=== PATIENT | male | born 1960 | race African-American/Black ===

== ENCOUNTER 2017-07-14 14:42 | Outpatient (CLI) | payer OTHER ==
--- NOTE | 2017-07-14 16:14 | RAD ---
TWO VIEWS LUMBAR SPINE: History: Low back pain with pain radiating down the right leg. Comparison: 04-23-17 FINDINGS: Lumbar spine two views. There is evidence of a stable mild to moderate compression fracture at L1. St able loss of vertebral body height and retropulsion. Remaining lumbar spine vertebral body heights ar e maintained. IMPRESSION: Stable L1 compression fracture. POS: [facility]
== END 2017-07-14 14:43 | disposition home or self-care (01) ==
LOC: TBSIIMAG 14:42
PROVIDERS: ATTEND Neurological Surgery
DX: S32.010A Wedge compression fracture of first lumbar vertebra, initial encounter for closed fracture (principal); M54.9 Dorsalgia, unspecified
CPT/HCPCS: 72100

== ENCOUNTER 2017-08-10 15:10 | Outpatient (CLI) | payer OTHER ==
[2017-08-10 15:56] LABS: Estimated GFR-MDRD - POC Greater than 90
[2017-08-10] MEDS ORDERED: Gadobenate Dimeglumine 529 MG/1 ML (20ML VIAL) ONE (17:38)
--- NOTE | 2017-08-10 17:58 | MRI ---
LUMBAR SPINE MRI WITH AND WITHOUT CONTRAST 08/10/17 COMPARISON: None available. HISTORY: Closed compression fracture of L1, low back pain radiating down the left leg. TECHNIQUE: Multiplanar and multisequence MR imaging of the lumbar spine is obtained with and without contrast. FINDINGS: The sagittal STIR imaging demonstrates increased signal intensity within the central aspect of the L1 vertebral body extending anteriorly to the anterior aspect of the L1 vertebral body. This increased STIR signal also extends to the inferior and superior end plate. This is consistent with edema associ ated with a comminuted burst fracture, best delineated on the 04/07/17 exam. There is retropulsion of o sseous fragments into the central canal at the inferior end plate of the L1 vertebral body, the prior CT examination as well. There is no additional discrete area of edema within the imaged osseous stru ctures. The full extent of fracture deformities is best assessed on the 04/07/17 CT examination. Assuming five lumbar type vertebral bodies, conus medullaris terminates in the T12-L1 region. T12-L1: There is disc space narrowing. On the basis of congenitally short pedicles, there is mild sam tral canal stenosis. There is no significant neural foraminal stenosis. L1-2: The above described burst fracture of L1 vertebral body demonstrates retropulsion along the inf erior end plate of L1. At this level, there is a moderate degree of associated central canal stenosis with mass effect on nerve roots of the cauda equina. There is bilateral facet hypertrophy with mild to moderate bilateral neural foraminal stenosis, right greater than left. L2-3: Bilateral facet hypertrophy noted, left greater than right. Congenitally short pedicles lead to mild central canal stenosis. No significant neural foraminal stenosis. L3-4: Mild bilateral facet hypertrophy. Congenitally short pedicles lead to mild central canal stenos is. No significant neural foraminal stenosis. L4-5: There is edematous increased signal intensity within bilateral facet joints with prominent bila teral facet hypertrophy. There is moderate associated central canal stenosis. There is moderate/sever e bilateral neural foraminal stenosis, right greater than left. There is a T2 hyperintense peripheral ly T2 hypointense 6 mm synovial cyst extending medially from the left facet joint worsening left late ral recess stenosis at L4-5. L5-S1: Bilateral facet hypertrophy noted, right greater than left. Mild left and moderate right neura l foraminal stenosis. Mild central canal stenosis on the basis of congenitally short pedicles. The imaged retroperitoneal structures appear grossly unremarkable. The STIR imaging demonstrates mild increased signal intensity within the paraspinal muscles posterior ly to the left of midline at the lumbosacral junction and just to the right of midline at the L3 and L4 vertebral levels. The postcontrast imaging demonstrates no abnormal enhancement involving the imag ed osseous structures or intervertebral discs. There is an isolated thin enhancing structure traversi ng the region of the nerve roots of the cauda equina which suggests a central/right paracentral infla med/enhancing nerve root. This could be on the basis of arachnoiditis. The configuration of the burst fracture at L1 is similar to the CT examination performed 04/07/17, which better defines the fracture. IMPRESSION: 1. There is a burst fracture at the L1 vertebral body with retropulsion of osseous fragment and associated significant central canal stenosis. There is residual edema within the L1 vertebral body. 2. Multilevel degenerative change noted within the lumbar spine with areas of associated central canal and neural foraminal stenosis. 3. Enhancing nerve root of the cauda equina, which can be seen with arachnoiditis or nonspecific nerve root inflammation. Code T POS: [facility]
== END 2017-08-10 15:11 | disposition home or self-care (01) ==
LOC: TBSIIMAG 15:10
PROVIDERS: ATTEND Neurological Surgery
DX: S32.011D Stable burst fracture of first lumbar vertebra, subsequent encounter for fracture with routine healing (principal); M48.061 Spinal stenosis, lumbar region without neurogenic claudication; M47.896 Other spondylosis, lumbar region; M99.83 Other biomechanical lesions of lumbar region
CPT/HCPCS: 72158; A9579

== ENCOUNTER 2017-09-07 06:36 | Day surgery (SDC) | payer OTHER, SELFPAY ==
[2017-09-04 13:43] VITALS: BMI 33.0
[2017-09-07] MEDS ORDERED: Fentanyl 100 MCG/2 ML VIAL ONE ×3 (06:39→11:24)
[2017-09-07] MEDS ORDERED: CEFAZOLIN/Water 2 GM/20 ML SYRINGE ONE (07:54)
[2017-09-07] MEDS ORDERED: Midazolam HCl 2 mg/2 ml Vial ONE (07:54)
[2017-09-07] MEDS ORDERED: Famotidine/PF 20 mg/2ml Vial ONE (07:54)
[2017-09-07 08:11] LABS: Hemoglobin 13.6 g/dL (14.0-18.0); Mean Corpuscular HGB CONC 34.1 g/dL (32.0-36.0); Mean Corpuscular Volume 90.9 fl (80.0-94.0); Mean Platelet Volume 7.1 fL (7.4-10.4); Platelet Count 259 thou/uL (130-400); RBC Distribution Width 11.4 % (11.5-14.5); Red Blood Cell (RBC) Count 4.38 mill/uL (4.70-6.10); White Blood Cell (WBC) Count 5.8 thou/uL (4.8-10.8)
[2017-09-07 08:28] LABS: Anion Gap 12 mmol/L (10-20); BUN (Urea Nitrogen) 9 mg/dL (8.4-25.7); Calc. Creatinine Clearance 130 mL/min (70-130); Calcium 9.9 mg/dL (7.8-10.44); Carbon Dioxide 26 mmol/L (22-29); Chloride 105 mmol/L (98-107); Estimated GFR-MDRD Greater than 90; Glucose 104 mg/dL (70-105); Potassium 3.4 mmol/L (3.5-5.1); Sodium 140 mmol/L (136-145)
[2017-09-07] MEDS ORDERED: Promethazine HCl 25 MG/ML VIAL IM/IV PRN (10:19)
[2017-09-07] MEDS ORDERED: Ondansetron HCl/PF 4 MG/2 ML Vial IVP PRN (10:19)
--- NOTE | 2017-09-07 11:54 | OP ---
DATE OF PROCEDURE: 09/07/2017 SURGEON: Elbert Grant M.D. JACQUARD CARD CUTTER: Gary Knight PROCEDURE PERFORMED: L4-L5 laminectomy. PROCEDURE IN DETAIL: The patient was brought into the operating room, intubated. He was rolled in t he prone position on gel-filled chest rolls. An incision was made exposing L4 and L5 and our level w as confirmed by x-ray. We performed complete L5 and complete L4 laminectomies completely decompressi ng the neural elements from severe facet arthropathy and bilateral synovial cysts. The wound was the n extensively irrigated, immaculate hemostasis was secured. Vancomycin powder was applied and the wo und was then closed in anatomic layers.
[2017-09-07] MEDS ORDERED: HYDROcodone/Acetaminophen 10/325 mg Tablet ONE (12:27)
[2017-09-07] MEDS ORDERED: PHENYLEPHRINE-NS 100 MCG/ML 10 ML SYRINGE ONE (15:12)
[2017-09-07] MEDS ORDERED: Glycopyrrolate 0.2 MG/ML 5 ML SYRINGE ONE (15:12)
[2017-09-07] MEDS ORDERED: PROPOFOL 200 MG/20 ML VIAL ONE (15:12)
[2017-09-07] MEDS ORDERED: Dexamethasone 20 MG/5 ML VIAL ONE (15:12)
[2017-09-07] MEDS ORDERED: Ondansetron HCl/PF 4 MG/2 ML Vial ONE (15:12)
[2017-09-07] MEDS ORDERED: Ketorolac Tromethamine 30 MG/ML VIAL ONE (15:12)
[2017-09-07] MEDS ORDERED: Lidocaine 1% PF 5 ML VIAL ONE (15:12)
--- NOTE | 2017-09-08 06:34 | EKG ---
Test Reason : PREOP Blood Pressure : / mmHG Vent. Rate : 058 BPM Atrial Rate : 058 BPM P-R Int : 136 ms QRS Dur : 108 ms QT Int : 416 ms P-R-T Axes : 060 048 030 degrees QTc Int : 408 ms Sinus bradycardia Otherwise normal ECG When compared with ECG of 07-APR-2017 15:43, No significant change was found Confirmed by LILLY TRIMBLE ([id number]) on 09/08/2017 6:34:24 AM Referred By: PAM Confirmed By:LILLY TRIMBLE
== END 2017-09-07 13:30 | disposition home or self-care (01) ==
LOC: SDC 06:36
PROVIDERS: ATTEND Neurological Surgery
PROC: 00NY0ZZ Release Lumbar Spinal Cord, Open Approach (ICD-10-PCS; principal; 2017-09-07)
DX: M48.061 Spinal stenosis, lumbar region without neurogenic claudication (principal); M71.38 Other bursal cyst, other site; I10 Essential (primary) hypertension; M10.9 Gout, unspecified; Z79.891 Long term (current) use of opiate analgesic; Z79.899 Other long term (current) drug therapy; Z98.890 Other specified postprocedural states
CPT/HCPCS: 76001; 80048; 85027; 93005; 93010; 96374; J1100; J1885; J2001; J2250; J2405; J2704; J3010; J3370; S0028

== ENCOUNTER 2018-03-18 09:27 | Outpatient (CLI) | payer OTHER ==
--- NOTE | 2018-03-18 12:43 | MRI ---
MRI CERVICAL SPINE NONCONTRAST: 03/18/2018 HISTORY: A 57-year-old male with cervical spondylosis with myelopathy (M47.12). COMPARISON: None. FINDINGS: The cervical spinal canal is diffusely small in caliber, on a congenital basis, due to developmentall y short pedicles. This is exacerbated by mild cervical spondylosis, as described below. The cervica l spinal cord is normal in size and signal. Vertebral body heights are maintained. Alignment is nor mal. There are moderate degenerative facet changes bilaterally, at C7-T1, left greater than right. Mild disk space narrowing at C4-C5 and C5-C6. No severe disk space narrowing at any level. There ar e shallow, broad-based disk osteophytic bar complexes that mildly indent the ventral surfaces of the spinal cord at C3-C4, C4-C5, C5-C6, and C6-C7. There are uncinate process osteophytes that encroach upon the bilateral neural foramina, causing neural foraminal stenosis. C1-C2: No additional findings, as seen on sagittal images. C2-C3: Moderate central stenosis. Mild bilateral neural foraminal stenosis. C3-C4: There is either a right lateral focal disk herniation or an asymmetrically moderate to large right uncinate process osteophyte complex, causing severe right neural foraminal stenosis, impinging on the exiting right C4 nerve roots. Overall, moderate to severe central spinal canal stenosis, and severe left neural foraminal stenosis also. C4-C5: Somewhat severe central spinal canal stenosis. Severe bilateral neural foraminal stenosis. In addition to the disk osteophytic bar complex, there is a superimposed, small, focal, left paracent ral disk herniation, which additionally indents the spinal cord. C5-C6: Severe central spinal canal stenosis. Severe bilateral neural foraminal stenosis. C6-C7: Moderate to severe central spinal canal stenosis. Severe right neural foraminal stenosis. M oderate to severe left neural foraminal stenosis. C7-T1: Moderate to severe central spinal canal stenosis. Bilateral moderate to severe neural forami nal stenosis. IMPRESSION: Developmentally small caliber spinal canal, exacerbated by mild to moderate multilevel cervical spond ylosis, with multilevel moderate and severe central spinal canal stenosis and multilevel severe bilat eral neural foraminal stenosis. POS: [facility]
== END 2018-03-18 09:28 | disposition home or self-care (01) ==
LOC: MRI 09:27
PROVIDERS: ATTEND Neurological Surgery
DX: M47.12 Other spondylosis with myelopathy, cervical region (principal); M48.02 Spinal stenosis, cervical region; M99.81 Other biomechanical lesions of cervical region
CPT/HCPCS: 72141

== ENCOUNTER 2018-04-16 09:42 | Outpatient (CLI) | payer MEDICARE ==
[2018-04-16 11:41] LABS: Hemoglobin 13.4 g/dL (14.0-18.0); Mean Corpuscular HGB CONC 33.5 g/dL (32.0-36.0); Mean Corpuscular Hemoglobin 30.9 pg (27.0-31.0); Mean Corpuscular Volume 92.1 fL (78.0-98.0); Mean Platelet Volume 7.1 fL (7.4-10.4); Platelet Count 295 thou/uL (130-400); RBC Distribution Width 11.6 % (11.5-14.5); Red Blood Cell (RBC) Count 4.34 mill/uL (4.70-6.10); White Blood Cell (WBC) Count 7.9 thou/uL (4.8-10.8)
[2018-04-16 12:01] LABS: Anion Gap 14 mmol/L (10-20); BUN (Urea Nitrogen) 11 mg/dL (8.4-25.7); Calc. Creatinine Clearance 0 mL/min (70-130); Calcium 9.9 mg/dL (7.8-10.44); Carbon Dioxide 26 mmol/L (22-29); Chloride 99 mmol/L (98-107); Estimated GFR-MDRD 76; Glucose 114 mg/dL (70-105); Potassium 3.4 mmol/L (3.5-5.1); Sodium 136 mmol/L (136-145)
--- NOTE | 2018-04-19 10:10 | EKG ---
Test Reason : Blood Pressure : / mmHG Vent. Rate : 078 BPM Atrial Rate : 078 BPM P-R Int : 132 ms QRS Dur : 100 ms QT Int : 378 ms P-R-T Axes : 067 048 040 degrees QTc Int : 430 ms Normal sinus rhythm Normal ECG When compared with ECG of 07-SEP-2017 07:37, No significant change was found Confirmed by DR. Lena FERNANDEZ ([id number]) on 04/19/2018 10:09:49 AM Referred By: PAM Confirmed By:DR. Lena FERNANDEZ
== END 2018-04-16 09:43 | disposition home or self-care (01) ==
LOC: LABBT 09:42
PROVIDERS: ATTEND Neurological Surgery
DX: Z01.818 Encounter for other preprocedural examination (principal); M47.12 Other spondylosis with myelopathy, cervical region
CPT/HCPCS: 80048; 85027; 93005; 93010

== ENCOUNTER 2018-04-19 08:12 | Day surgery (SDC) | payer MEDICARE ==
[2018-04-16 10:19] VITALS: BMI 34.8
[2018-04-19] MEDS ORDERED: CEFAZOLIN/Water 2 GM/20 ML SYRINGE ONE (09:40)
[2018-04-19] MEDS ORDERED: Fentanyl 100 MCG/2 ML VIAL ONE ×5 (11:06→14:08)
[2018-04-19] MEDS ORDERED: Sodium Chloride 0.9% 10 ML ONE (11:32)
[2018-04-19] MEDS ORDERED: PROPOFOL 200 MG/20 ML VIAL ONE (11:35)
[2018-04-19] MEDS ORDERED: PHENYLEPHRINE-NS 100 MCG/ML 10 ML SYRINGE ONE (11:35)
[2018-04-19] MEDS ORDERED: Esmolol 100 MG/10 ML VIAL ONE (11:35)
[2018-04-19] MEDS ORDERED: Ondansetron HCl/PF 4 MG/2 ML Vial ONE (11:35)
[2018-04-19] MEDS ORDERED: Dexamethasone 20 MG/5 ML VIAL ONE (11:35)
[2018-04-19] MEDS ORDERED: Glycopyrrolate 0.2 MG/ML 5 ML SYRINGE ONE (11:35)
[2018-04-19] MEDS ORDERED: Midazolam HCl 2 mg/2 ml Vial ONE (12:08)
--- NOTE | 2018-04-19 13:24 | OP ---
DATE OF PROCEDURE: 04/19/2018 SURGEON: Elbert Grant M.D. GRAVITY PROSPECTING SUPERVISOR: Sudheer Darling PA-C PROCEDURE: Anterior cervical discectomy C4-5 and C5-6, interbody arthrodesis, intravertebral biomech anical device, local morselized autograft, demineralized bone matrix, anterior titanium instrumentati on C4-C6. PROCEDURE IN DETAIL: The patient was brought to the operating room, intubated. He was positioned jones pine in modest extension on a gel-filled donut. Incision was made in the right precervical area and dissecting medial to the sternocleidomastoid muscle, identified the anterior cervical spine and our l evel was confirmed by x-ray. We debrided anterior osteophytes, placed distraction across the disc sp aces using the operating microscope and microdissection techniques, completely decompressed the spina l cord from foramen to foramen between C4 and C6. Next, the bony endplates were decorticated for art hrodesis and appropriately sized intravertebral biomechanical PEEK device was brought into the field, filled with demineralized bone and local morselized autograft, and tapped into place securely at C4- 5 and C5-6. Next, an anterior plate was brought in the field and secured to C4, C5, and C6 using two 14 mm screws at each level. The wound was then extensively irrigated, immaculate hemostasis was sec ured, and the wound was closed in anatomic layers.
== END 2018-04-19 15:39 | disposition home or self-care (01) ==
LOC: SDC 08:12
PROVIDERS: ATTEND Neurological Surgery
PROC: 0RG20A0 Fusion of 2 or more Cervical Vertebral Joints with Interbody Fusion Device, Anterior Approach, Anterior Column, Open Approach (ICD-10-PCS; principal; 2018-04-19)
PROC: 0RT30ZZ Resection of Cervical Vertebral Disc, Open Approach (ICD-10-PCS; 2018-04-19)
DX: M48.02 Spinal stenosis, cervical region (principal); G95.9 Disease of spinal cord, unspecified; Z79.891 Long term (current) use of opiate analgesic; Z79.899 Other long term (current) drug therapy
CPT/HCPCS: 76001; 96374; A4216; C1713; C1776; J1100; J2250; J2405; J2704; J3010; J3490

== ENCOUNTER 2018-04-22 20:50 | Inpatient (IN) | payer MEDICARE ==
--- NOTE | 2018-04-22 21:32 | RAD ---
AP VIEW CHEST 04/22/18 HISTORY: Chest pain. AP view chest is obtained on 04/22/18. AP view chest demonstrates the lungs to be well aerated. No evidence of active intrathoracic disease seen. No evidence of effusions, pneumonia or pneumothorax seen. IMPRESSION: Unremarkable AP view chest. POS: [facility]
[2018-04-22 21:40] LABS: #Basophils 0.1 thou/uL (0.0-0.2); #Eosinphils 0.2 thou/uL (0.0-0.7); #Lymphocytes 2.8 thou/uL (1.20-3.40); #Monocytes 1.2 thou/uL (0.11-0.59); #Neutrophils 7.2 thou/uL (1.40-6.50); %Basophils 0.6 % (0.0-1.0); %Eosinophils 1.4 % (0.0-10.0); %Lymphocytes 24.6 % (21.0-51.0); %Monocytes 10.6 % (0.0-10.0); %Neutrophils 62.8 % (42.0-75.0); Hemoglobin 12.3 g/dL (14.0-18.0); Mean Corpuscular HGB CONC 32.8 g/dL (32.0-36.0); Mean Corpuscular Hemoglobin 29.8 pg (27.0-31.0); Mean Corpuscular Volume 90.9 fL (78.0-98.0); Mean Platelet Volume 7.3 fL (7.4-10.4); Platelet Count 333 thou/uL (130-400); RBC Distribution Width 11.4 % (11.5-14.5); Red Blood Cell (RBC) Count 4.13 mill/uL (4.70-6.10); White Blood Cell (WBC) Count 11.5 thou/uL (4.8-10.8)
[2018-04-22 21:47] LABS: INR-International Normal Ratio 1.1; PTT 31.9 SEC (22.9-36.1); Prothrombin Time 14.2 SEC (12.0-14.7)
[2018-04-22] MEDS ORDERED: Sodium Chloride 0.9% 100 ML ONE (21:57)
[2018-04-22] MEDS ORDERED: Piperacillin/Tazobactam 4.5 GM VIAL ONE (21:57)
[2018-04-22 21:58] LABS: ALT (SGPT) 10 U/L (8-55); AST (SGOT) 16 U/L (5-34); Albumin 4.1 g/dL (3.5-5.0); Alkaline Phosphatase 57 U/L (40-150); Anion Gap 14 mmol/L (10-20); BUN (Urea Nitrogen) 11 mg/dL (8.4-25.7); Bilirubin, Total 0.6 mg/dL (0.2-1.2); CK (CPK) 327 U/L (30-200); Calc. Creatinine Clearance 0 mL/min (70-130); Calcium 9.7 mg/dL (7.8-10.44); Carbon Dioxide 26 mmol/L (22-29); Chloride 101 mmol/L (98-107); Estimated GFR-MDRD 75; Globulin 3.6 g/dL (2.4-3.5); Glucose 113 mg/dL (70-105); Potassium 3.6 mmol/L (3.5-5.1); Protein, Total 7.7 g/dL (6.0-8.3); Sodium 137 mmol/L (136-145)
[2018-04-22 22:02] LABS: CKMB 2.3 ng/mL (0-6.6); Troponin I Less than 0.010 ng/mL (< 0.028)
[2018-04-22 23:15] LABS: Acetaminophen Less than 6.0 mcg/mL (10.0-30.0); Alcohol Less than 10 mg/dL (Less than 10); Salicylate Less than 8.0 mg/dL (15.0-30.0)
[2018-04-22 23:44] LABS: Bilirubin Negative (Negative); Blood, Urine Negative (Negative); Clarity CLEAR (Clear); Glucose, Urine (Dipstick) Negative (Negative); Leukocyte Negative (Negative); Nitrite Negative (Negative); Protein, Urine (Dipstick) Negative (Neg-Trace); pH, Urine 6.5 (5.0-9.0)
--- NOTE | 2018-04-22 23:50 | PDOC.FPRHP ---
- History of Present Illness Chief Complaint: Fever and chest pain History of Present Illness: 57M with PMH of HTN and chronic back pain post op day 4 from anterior fusion surgery presenting for evaluation of CP and fever. Pt reports evening he had sudden onset of sharp sever substernal CP with some radiation to shoulders and back. Pt reports the pain has been constant and experiences related SOB, cough, fevers and chills. No nausea/vomiting no dysuria, no rashes. Pt SIRS + on presentation to ED with tachycardia and febrile to 101 degrees. Pt fell asleep several times during my interview. When asked about his somnolence the girlfriend replied "it's normal for him". Reports he is on oxycodone 30 QID at home for chronic pain. ED Course: Pt s/p 2 L IVF, Blood Cx, Vanc/Zosyn, EKG sinus tachy, CXR normal, ddimer 1.79 - -> spiral CT - Allergies/Adverse Reactions Allergies Allergy/AdvReac Type Severity Reaction Status Date / Time No Known Allergies Allergy Verified 04/23/18 02:52 - Home Medications Medication Instructions Recorded Confirmed Type Carisoprodol [Soma] 350 mg PO TID 03/21/17 04/23/18 History Lisinopril/Hydrochlorothiazide 1 tablet PO DAILY #14 tablet 03/25/17 04/23/18 Rx [Lisinopril-Hctz 20-25 mg Tab] Docusate Sodium [Dulcolax Stool 100 mg PO DAILY PRN 09/04/17 04/23/18 History Softener] OxyCODONE IR 1 tab PO QID 04/16/18 04/23/18 History Allopurinol 100 mg PO DAILY #14 tablet 04/23/18 Rx Cephalexin [Keflex] 500 mg PO QID #40 cap 04/23/18 Rx Colchicine 0.6 mg PO BID #10 capsule 04/23/18 Rx Ibuprofen [Motrin] 800 mg PO BIDPRN PRN tab 04/23/18 Rx - History PMHx: HTN, chronic back pain PSHx: anteroir cervical fusion, 2 unspecified back surgeries, 1 femur surgery, shoulder surgery FHx:HTN Social: former smoker (70pack years), denies EtOH/drugs - Review of Systems General: denies: fever/chills, fatigue Eyes: denies: eye pain, vision changes ENT: denies: nasal congestion, rhinorrhea Respiratory: reports: cough, shortness of breath. denies: congestion Cardiovascular: reports: chest pain. denies: palpitation, edema Gastrointestinal: denies: nausea, vomiting, abdominal pain Genitourinary: denies: incontinence, dysuria Skin: denies: rashes, lesions Musculoskeletal: reports: pain (chronic back). denies: swelling Neurological: denies: numbness, syncope Psychological: reports: anxiety - Vital signs BP: [100/70] HR: [115] RR: [20] Tmax: [102] Pox: [94]% on [RA] Wt: [111kg] - Physical Exam Constitutional: awake, alert and oriented, other (Pt in moderate distress due to pain) HEENT: normocephalic and atraumatic, EOMI, grossly normal vision, normal nasal mucosa, MMM -HEENT: No tenderness to palpation of anterior neck. incision looks clean dry and intact Neck: trachea midline, other Chest: no-tender to palpation Heart: RRR, normal S1/S2, no murmurs/rubs/gallops Lungs: CTAB, no respiratory distress, good air movement Abdomen: soft, non-tender, bowel sounds present Musculoskeletal: normal structure, normal tone Neurological: normal sensation Skin: no rash/lesions, good turgor Heme/Lymphatic: no purpura, no petechia Psychiatric: normal mood and affect FMR H&P: Results - Labs Result Diagrams: 04/23/18 03:22 04/23/18 03:22 Lab results: WBC 11.5 thou/uL (4.8-10.8) H 04/22/18 21:07 Hgb 12.3 g/dL (14.0-18.0) L 04/22/18 21:07 Hct 37.5 % (42.0-52.0) L 04/22/18 21:07 MCV 90.9 fL (78.0-98.0) 04/22/18 21:07 Plt Count 333 thou/uL (130-400) 04/22/18 21:07 Neutrophils % 62.8 % (42.0-75.0) 04/22/18 21:07 Sodium 137 mmol/L (136-145) 04/22/18 21:07 Potassium 3.6 mmol/L (3.5-5.1) 04/22/18 21:07 Chloride 101 mmol/L (98-107) 04/22/18 21:07 Carbon Dioxide 26 mmol/L (22-29) 04/22/18 21:07 BUN 11 mg/dL (8.4-25.7) 04/22/18 21:07 Creatinine 1.21 mg/dL (0.6-1.3) 04/22/18 21:07 Glucose 113 mg/dL (70-105) H 04/22/18 21:07 Lactic Acid 0.8 mmol/L (0.5-2.2) 04/22/18 21:07 Calcium 9.7 mg/dL (7.8-10.44) 04/22/18 21:07 Total Bilirubin 0.6 mg/dL (0.2-1.2) 04/22/18 21:07 AST 16 U/L (5-34) 04/22/18 21:07 ALT 10 U/L (8-55) 04/22/18 21:07 Alkaline Phosphatase 57 U/L (40-150) 04/22/18 21:07 Creatine Kinase 327 U/L (30-200) H 04/22/18 21:07 CK-MB (CK-2) 2.3 ng/mL (0-6.6) 04/22/18 21:07 Serum Total Protein 7.7 g/dL (6.0-8.3) 04/22/18 21:07 Albumin 4.1 g/dL (3.5-5.0) 04/22/18 21:07 FMR H&P: A/P - Plan SIRS without a source A- Could be infectious vs. potential PE vs. response to pain. Pt has post op fever with sob and cp, cxr negative, lactate 0.8, status post 2 liter LR with SBP in 100s (girlfriend reports this is his baseline at home). Pt somnolence possibly due to home pain medication P- spiral Chest CT -await BCx, UA, UDS -Continue Vanc/Zosyn -LR 150ml/hr -monitor vitals -hold home oxycodone atypical chest pain A- Heart score of 2, trop neg x1 with normal EKG, possibly post op pain vs PE vs musculoskeletal. P- trend troponins -will consider restarting home pain regimen once less somnolent HTN -hold home meds at this time due to BP FMR H&P: Upper Level - Pertinent history Greg Wheeler is a 57 year old male who presents to the ED with one day history of chest tightness and fever. Regarding the chest pain, it began suddenly earlier today with radiation to both shoulders and was accompanied by fever, chills, and cough. Pt states that his chest pain resolved, and he is currently pain free. His main complaint at this time is neck pain. - Pertinent findings Vitals: Tmax: 101.1 RR: 12 P: 110-116 BP: 110/75 O2: 100 on RA weight: 109 Trop: < 0.01 D-dimer: 1.79 Physical exam General: pt is somnolent, but arousable. Slow to answer questions. Neck: trachea midline; steristrips covering surgical wound Heart: regular rate and rhythm no murmurs, rubs, or gallops; no anterior chest wall tenderness to palpation. Lungs: clear to auscultation bilaterally. Abomen: soft, non-tender, non-distended. Extremities: no cyanosis or arturo; no palpable, tender cords - Plan Date/Time: 04/22/18 2384 I, Kacie Deutsch, have evaluated this patient and agree with findings/plan as outlined by cad intern resident. Pertinent changes/additions are listed here. Sepsis without source - causes of postop fever considered including: atelectasis, DVT/PE, UTI, mediations, wound infection - Wound appears well-healing with no exudate - CXR negative. - UA/Urine culture, Blood cultures, influenza rapid Ag testing pending. - will continue to monitor. - May consider reaching out to neurosurgery to discuss possible complications of ACDF and any relation to pt's current presentation Atypical chest pain - unlikely cardiac in origin. - Heart score of 2, no need to pursue risk stratification with stress testing during hospitalization. - will continue to trend troponins. Hypertension - resume home medications. Attending Addendum - Attending Addendum Date/Time: 04/26/18 0930. Please note seen on day of admission. I personally evaluated the patient and discussed the management with Dr. Deutsch and Ingrid. I agree with and repeated the History, Examination, Assessment and Plan documented above with any addition or exceptions noted below. Pt relatively poor informant. He has had a variable story between the residents and myself. C/o multiple areas of pain. Upper neck and shoulders, bilateral elbows, lower back. He is unsure if these started recently or are more consistent with his previous pain. He has had sore throat and fever for 2 days. He also c/o chest pain, which he says does not radiate and not associated with diaphoresis or nausea or RENTERIA. He denies a headache or vision changes. On exam his is tired appearing but nontoxic. Tachy, without murmur, wwp, no TTP. CTAB s w/r/r or inc wob BS+, NTTP, no palp organomegaly MSK: he has warm elbows bilaterally but no swelling and was febrile at time of exam. NTTP. Neuro: AOx4, motor 5/5 BUE and BLE, flexors, extensors, opp/int. SILT throughout as well. Skin: incision c/d/i s e/e on neck. NTTP. Labs and imaging reviewed. Admit, antibiotics, cultures, discuss with neurosx in AM. Currently nonfocal, but low suspicion for meningitis, endocarditis/pericarditis, infection of either elbow. Infectious complication related to recent surgery a possibility.
[2018-04-22 23:52] LABS: Amphetamine Not Detected (NotDetected); Barbiturates Screen Not Detected (NotDetected); Benzodiazepine Screen Detected (NotDetected); Cocaine Metabolite Screen Not Detected (NotDetected); Medtox Control Line Valid? VALID (VALID); Medtox Reader # READER 1; Methadone Not Detected (NotDetected); Methamphetamine Not Detected (NotDetected); Opiate Screen Detected (NotDetected); Oxycodone Screen Detected (NotDetected); Phencyclidine (PCP) Not Detected (NotDetected); THC/Cannabinoid Screen Not Detected (NotDetected); Tricyclic Screen Not Detected (NotDetected)
--- NOTE | 2018-04-23 00:16 | PDOC.EVN ---
Event Note - Event Note Event Note: 57M with PMH of HTN and chronic back pain post op day 4 from anterior fusion surgery presenting for evaluation of CP and fever. Pt reports evening he had sudden onset of sharp sever substernal CP with some radiation to shoulders and back. Pt reports the pain has been constant and experiences related SOB, cough, fevers and chills. No nausea/vomiting no dysuria, no rashes. Pt SIRS + on presentation to ED with tachycardia and febrile to 101 degrees. Pt fell asleep several times during my interview. When asked about his somnolence the girlfriend replied "it's normal for him". Reports he is on oxycodone 30 QID at home for chronic pain.
[2018-04-23 00:49] LABS: Troponin I Less than 0.010 ng/mL (< 0.028)
[2018-04-23] MEDS ORDERED: Ondansetron ODT 4 MG TAB PO PRN (02:10)
[2018-04-23] MEDS ORDERED: Docusate 100 MG CAP PO PRN (02:10)
[2018-04-23] MEDS ORDERED: Ibuprofen 800 MG TAB PO PRN (02:10)
[2018-04-23] MEDS: Lactated Ringer's 1,000 ML IV SCH ×2 (02:45→10:39)
[2018-04-23] MEDS ORDERED: Acetaminophen 325 MG TAB PO PRN (03:06)
[2018-04-23 03:07] VITALS: BMI 36.3
[2018-04-23 03:38] LABS: #Basophils 0.1 thou/uL (0.0-0.2); #Eosinphils 0.1 thou/uL (0.0-0.7); #Lymphocytes 2.6 thou/uL (1.20-3.40); #Monocytes 1.2 thou/uL (0.11-0.59); #Neutrophils 6.7 thou/uL (1.40-6.50); %Basophils 0.5 % (0.0-1.0); %Eosinophils 1.2 % (0.0-10.0); %Lymphocytes 24.6 % (21.0-51.0); %Monocytes 11.1 % (0.0-10.0); %Neutrophils 62.7 % (42.0-75.0); Hemoglobin 12.2 g/dL (14.0-18.0); Mean Corpuscular HGB CONC 32.4 g/dL (32.0-36.0); Mean Corpuscular Volume 92.5 fL (78.0-98.0); Platelet Count 253 thou/uL (130-400); RBC Distribution Width 11.2 % (11.5-14.5); Red Blood Cell (RBC) Count 4.08 mill/uL (4.70-6.10); White Blood Cell (WBC) Count 10.7 thou/uL (4.8-10.8)
[2018-04-23] MEDS: Piperacillin/Tazobactam 4.5 GM in Sodium Chloride 0.9% 100 ML IVPB SCH ×2 (03:56→10:39)
[2018-04-23 04:04] LABS: Anion Gap 17 mmol/L (10-20); BUN (Urea Nitrogen) 11 mg/dL (8.4-25.7); Calc. Creatinine Clearance 118 mL/min (70-130); Calcium 9.4 mg/dL (7.8-10.44); Carbon Dioxide 21 mmol/L (22-29); Chloride 103 mmol/L (98-107); Estimated GFR-MDRD 84; Glucose 84 mg/dL (70-105); Potassium 3.9 mmol/L (3.5-5.1); Sodium 137 mmol/L (136-145)
[2018-04-23 04:15] LABS: Troponin I Less than 0.010 ng/mL (< 0.028)
--- NOTE | 2018-04-23 05:48 | PDOC.FM ---
- Subjective Subjective: Pt complains of left elbow pain this morning, says it started late last night. Reports he has gout flares 3-4 times per month, and is not taking his gout medications (reports one doctor told him he could take them intermittently, and another doctor told him to take them every day so he doesn't know what to do.) - Objective Vital Signs & Weight: Vital Signs (12 hours) Temp Pulse Resp BP Pulse Ox 04/23/18 04:41 102 F H 20 04/23/18 02:25 103.1 F H 109 H 24 H 152/85 H 95 Weight Weight 111.538 kg Result Diagrams: 04/23/18 03:22 04/23/18 03:22 Phys Exam - Physical Examination Constitutional: NAD HEENT: PERRLA Neck: no nodes, supple Respiratory: no wheezing, clear to auscultation bilateral Cardiovascular: RRR, no significant murmur Gastrointestinal: soft, no distention Musculoskeletal: no edema, pulses present L elbow warm and erythematous, decreased ROM. TTP Neurological: moves all 4 limbs Psychiatric: normal affect, A&O x 3 Deviation from normal: slight yellow drainage from anterior cervical incision, on warmth or rednes Dx/Plan (1) SIRS (systemic inflammatory response syndrome) Code(s): R65.10 - SIRS OF NON-INFECTIOUS ORIGIN W/O ACUTE ORGAN DYSFUNCTION Status: Acute (2) Atypical chest pain Code(s): R07.89 - OTHER CHEST PAIN Status: Acute (3) HTN (hypertension) Code(s): I10 - ESSENTIAL (PRIMARY) HYPERTENSION Status: Chronic (4) Gout Code(s): M10.9 - GOUT, UNSPECIFIED Status: Acute Qualifiers: Gout site: multiple sites Chronicity: acute - Plan Plan: 57 yo M with 4d s/p cervical anterior fusion surgery presents with SIRS without source and atypical chest pain SIRS without a source - Could be infectious vs. potential PE vs. response to pain. Pt has post op fever with sob and cp, cxr negative, lactate 0.8, status post 2 liter LR with SBP in 100s (girlfriend reports this is his baseline at home). Pt somnolence possibly due to home pain medication - Febrile overnight to 103 - spiral Chest CT pending - consider cervical MRI for spinal abscess or vertebral osteomyelitis - Consider neurosurgery consult - ESR 50, CrP 10.57 - BCx/U Cx pending - UA neg - UDS + for expected - Continue Vanc/Zosyn - LR 150ml/hr - monitor vitals - hold home oxycodone Acute Gout Flare - L elbow, began last night. Patient states he has flares 3-4 times per month. Recent surgery. Denies alcohol use, denies recent intake of large amount of meat. - Start colchicine today atypical chest pain - Heart score of 2, trop neg x3 with normal EKG, possibly post op pain vs PE vs musculoskeletal. - trop negative - CTA pending HTN -hold home meds at this time due to BP
[2018-04-23] MEDS ORDERED: Famotidine 20 MG TAB PO SCH (09:00)
[2018-04-23] MEDS ORDERED: Enoxaparin Sodium 40 MG/0.4 ML SYRINGE SC SCH (09:00)
--- NOTE | 2018-04-23 09:16 | CT ---
PRELIMINARY REPORT/[facility]/EMERGENCY AFTER HOURS PROCEDURE: EXAM: CT Angiography Chest With Intravenous Contrast CLINICAL HISTORY: 57 years old, male; Pain; Chest pain; Patient HX: 57 year old m presents with fever, body aches, and chest pain starting this evening. Patient's girlfriend states he has been feeling feverish since d/c from hospital post anterior cervical fusion on thursday. He has been eating and drinking since that charu e. She states he take oxycodone three times a day for cervical and lumbar pain. He did not take anymo re than usual today TECHNIQUE: Axial computed tomographic angiography images of the chest with intravenous contrast using pulmonary embolism protocol. MIP reconstructed images were created and reviewed. Coronal reformatted images were created and reviewed. COMPARISON: No relevant prior studies available. FINDINGS: Pulmonary arteries: Normal. Aorta: No acute findings. Lungs: No pulmonary embolism. Calcified granuloma within the posterior right lower lobe. Pleural space: Normal. No significant effusion. No pneumothorax. Heart: Normal. Mediastinum: Small-sized hiatal hernia. Bones/joints: Multilevel thoracic spine degenerative changes. No acute fracture. No dislocation. Soft tissues: Normal. Lymph nodes: Calcified right hilar lymph nodes, compatible with prior granulomatous disease. Gallbladder and bile ducts: Gallbladder is surgically absent. IMPRESSION: 1. No pulmonary embolism. 2. Incidental/non-acute findings are described above. Thank you for allowing us to participate in the care of your patient. Dictated and Authenticated by: Neo Berger MD 04/23/2018 1:33 AM Central Time ([place] & [place]) FINAL REPORT CT ARTERIOGRAM CHEST WITH IV CONTRAST AND 3D MIP IMAGING: DATE: 04/23/18. TIME: Performed on an emergency basis at 0112 hours. HISTORY: Chest pain. Dyspnea. FINDINGS: Agree with the preliminary report by Dr. Berger from [facility]. No CT evidence of pulmonary embolus. POS: [facility]
--- NOTE | 2018-04-23 11:10 | PRG ---
DATE OF SERVICE: 04/23/2018 Mr. Wheeler is a very pleasant 57-year-old black male patient, who was admitted with a fever. He had had cervical disk disease and fusion, Thursday, here at this institution. He, however, is not having a ny increased neck pain or difficulty swallowing. Review of systems is really negative for source of his fever. This morning, he states he feels much better and he is currently afebrile. Studies done so far include the following. His chest x-ray is unremarkable, showing no evidence of p neumonia or infiltrate. He was having some atypical chest discomfort and an elevated D-dimer. We, t herefore, underwent a CTA of the chest. The impression was there was no pulmonary embolism. The aor ta appeared normal. Heart appeared normal. The mediastinum showed a small-sized hiatal hernia. Tho racic spine shows some degenerative changes. Soft tissues were normal. Lymph nodes, the right hilar lymph nodes showed prior granulomatous disease. The gallbladder was surgically absent. Laboratory claire, on admission, his white count was 11,500 with a hemoglobin of 12.3, hematocrit 37.5, and a normal differential. This morning, his white count has dropped to 10,700 with a hemoglobin of 12.2 and hematocrit of 37.7. Chemistries: Sodium is 137, potassium 3.9, chloride 103, bicarbonate 21, BUN 11, creatinine 1.1. His lactic acid was low at 0.8. His cardiac enzymes have been negative x2, tropes being less than 0.01. His C-reactive protein was elevated at 10.75. His urine was totall y clear. No signs of infection. We will touch base with his Neurosurgery team to ask about the feas ibility of CT of the neck, looking for abscess. However, clinically, he certainly does not appear to have this complication. If all studies are normal, he may be ready for discharge later today or magdy orrow. In the event, clinically he looks and feels much better this morning and we are still awaitin g some culture results.
[2018-04-23] MEDS ORDERED: ISOVUE-370 76%-LOCM 1 ML ONE (12:00)
[2018-04-23 12:09] VITALS: BP 103/60; TEMP 97.9
--- NOTE | 2018-04-23 14:19 | DIS-2 ---
DATE OF ADMISSION: 04/22/2018 DATE OF DISCHARGE: 04/23/2018 RESIDENT: Dr. Shantel Dave ADMITTING ATTENDING: Dr. Juwan Jackson DISCHARGE ATTENDING: Dr. Hudson Haro CONSULTATIONS: None. PROCEDURES: 1. Chest x-ray 04/22/2018 Impression: Unremarkable AP view chest. 2. Chest/thorax CTA 04/23/2018. Findings; agree with the preliminary report by Dr. Berger from [facility]. No CT evidence of pulmonary embolus. PRIMARY DIAGNOSES: Systemic inflammatory response syndrome secondary to acute gout flare. SECONDARY DIAGNOSES: 1. Atypical chest pain secondary to postop pain. 2. Hypertension. DISCHARGE MEDICATIONS: 1. Ibuprofen 800 mg oral b.i.d. p.r.n. for pain. 2. Allopurinol 100 mg p.o. daily. 3. Colchicine 0.6 mg b.i.d. until gout flare resolves 4. Cephalexin 500 mg oral q.i.d. for 10 days. 5. Carisoprodol 300 mg p.o. t.i.d. 6. Lisinopril/hydrochlorothiazide 1 tablet p.o. daily. 7. Docusate sodium 100 mg p.o. daily p.r.n. 8. Oxycodone 1 tab oral 4 times daily p.r.n. for pain. HISTORY OF PRESENT ILLNESS AND HOSPITAL COURSE: A 57-year-old with past medical history of hypertension and chronic back pain, postop day #4 from anterior fusion of his neck surgery presenting for evaluation of chest pain and fever. The patient reported evening, he had sudden onset of sharp, severe substernal chest pain with some radiation to shoulders and back. The patient reported the pain has been constant and experiences related shortness of breath, cough, fevers and chills. No nausea or vomiting. No dysuria. No rashes. The patient met criteria for syndrome without a source on presentation to ED with tachycardia and became febrile of 103 overnight. His white count was high at 11.5. The patient fell asleep several times during his interview. When asked about his somnolence, his girlfriend replied it is normal for him. He reported to be on oxycodone 30 q.i.d. at home for chronic pain. In the ED, the patient received 2 liters IV fluids. Blood cultures, vancomycin and Zosyn, EKG that showed sinus tachycardia. Normal chest x-ray and a D-dimer that was high at 1.79. His cardiac markers were negative. He was given a CTA which ruled out PE. His UA was negative. His urine drug screen was only positive for expected drugs. He was kept on LR @ 150 ml /hr and his vitals were monitored overnight. The next morning, he woke up and complained of acute left elbow pain. The patient stated that he has gout flares 3-4 times a year. He denied any recent alcohol use or intake, or a large amount of red meat. He was started on colchicine and allopurinol. His chest pain had resolved by the next morning. DISPOSITION: Stable. DISCHARGE INSTRUCTIONS: 1. Location: Home. 2. Diet: Heart healthy. 3. Activity: As tolerated. 4. Follow up with Dr. Grant next week. 5. Follow up with your PCP in 1 week. Consider possible sleep study outpatient for ALEXA. Consider increasing allopurinol dosing, and continuing on daily allopurinol to prevent future gout flares. MTDD
[2018-04-23] MEDS ORDERED: Colchicine 0.6 MG TAB PO SCH (21:00)
[2018-04-24] MEDS ORDERED: Allopurinol 100 MG TAB PO SCH (09:00)
== END 2018-04-23 15:52 | disposition home or self-care (01) | DRG 554 ==
LOC: ERS 20:50 → 2SW 22:06
PROVIDERS: ADMIT Emergency Medicine; ATTEND Emergency Medicine
DX: M10.9 Gout, unspecified (principal); R65.10 Systemic inflammatory response syndrome (SIRS) of non-infectious origin without acute organ dysfunction; G89.18 Other acute postprocedural pain; I10 Essential (primary) hypertension
CPT/HCPCS: 36415; 71045; 71275; 80048; 80053; 80306; 80307; 81003; 82550; 82553; 83605; 84484; 84550; 85025; 85379; 85610; 85652; 85730; 86140; 87040; 87086; 87804; 93005; 96365; 96367; A4216; J1650; J2270; J2543; J3370; J7050

== ENCOUNTER 2018-04-29 15:41 | Outpatient (CLI) | payer MEDICARE ==
--- NOTE | 2018-04-29 17:27 | RAD ---
CERVICAL SPINE RADIOGRAPHS 4 VIEWS: Date: 04/29/18 PROVIDED CLINICAL HISTORY: Cervical spondylosis with myelopathy. FINDINGS: Cervical alignment appears normal. Changes of ACDF are noted from C4 through C6. There is mild prever tebral soft tissue prominence. Vertebral body heights appear preserved. Intervertebral disc space hei ghts appear preserved. The visualized lung apices appear clear. IMPRESSION: Postoperative change involving the cervical spine. POS: [facility]
== END 2018-04-29 15:42 | disposition home or self-care (01) ==
LOC: TBSIIMAG 15:41
PROVIDERS: ATTEND Neurological Surgery
DX: M47.12 Other spondylosis with myelopathy, cervical region (principal); Z98.890 Other specified postprocedural states
CPT/HCPCS: 72040

== ENCOUNTER 2018-04-30 13:21 | Outpatient (CLI) | payer MEDICARE ==
--- NOTE | 2018-04-30 15:04 | CT ---
CT OF THE CERVICAL SPINE PERFORMED WITHOUT CONTRAST ENHANCEMENT: HISTORY: The patient had neck surgery 1 week ago now with neck pain and difficulty lifting right arm. FINDINGS: The vertebral bodies are normal in height. Postoperative changes are noted. There is anterior cervi jean fusion with placement of a plate and screws which extend from C4 to C6. The markers of disk impl ants are within the confines of the disk levels. The facets are in normal alignment. The lack of any intrathecal contrast limits detail for evaluation of disk or any type of epidural col lection. C2-3: Unremarkable. C3-4: There is some disk bulging slightly asymmetric to the right. Suggestion of some slight right- sided foraminal narrowing. It is difficult to assess on a nonmyelographic exam. C4-5: Postoperative changes are noted. No definite acute findings. No signs of herniation. C5-6: Detail limited due to artifact. No signs for any definite disk herniation or any definite for aminal stenosis. C6-7: Unremarkable. C7-T1: Unremarkable. IMPRESSION: 1. Postoperative changes of the spine. The anterior plate and screws appear to be in good position. Disk implants are within the confines of the disk levels. 2. Some disk bulging at the C3-4 level somewhat asymmetric to the right with a suggestion of some sl ight right-sided foraminal narrowing. POS: [facility]
== END 2018-04-30 13:22 | disposition home or self-care (01) ==
LOC: TBSIIMAG 13:21
PROVIDERS: ATTEND Neurological Surgery
DX: M47.12 Other spondylosis with myelopathy, cervical region (principal); M50.01 Cervical disc disorder with myelopathy, high cervical region; Z98.890 Other specified postprocedural states
CPT/HCPCS: 72125

== ENCOUNTER 2018-05-24 09:53 | Outpatient (CLI) | payer MEDICARE ==
--- NOTE | 2018-05-24 10:21 | RAD ---
THREE VIEWS RIGHT SHOULDER: History: Right shoulder pain. Date: 05-24-18 Comparison: 03-18-17 FINDINGS: AP internally, externally and scapular Y views obtained and demonstrates no evidence of right shoulde r fractures, subluxations, or bony lesions. Degenerative changes seen in the right AC joint. IMPRESSION: Normal three views right shoulder. POS: [facility]
--- NOTE | 2018-05-24 13:15 | MRI ---
MRI OF THE RIGHT SHOULDER WITHOUT CONTRAST: INDICATION: History of right shoulder pain. COMPARISON: Prior MRI of the right shoulder dated 03/23/2017. FINDINGS: Again seen is severe tendinosis of the supraspinatus. There is a bursal surface tear involving the m id supraspinatus that has progressed from the prior exam now involving 50% of the tendon thickness an d measuring 1.4 x 1.2 cm. There is stable appearance of the SLAP tear extending from 10 to approxima tely 1 o'clock position. There is stable extension in the biceps anchor. There is susceptibility ar tifact within the superior glenoid turbercle likely reflecting sequelae of prior SLAP repair. Biceps tendon remains located. Subscapularis and infraspinatus tendons appear intact. There is worsening fluid in the subacromial, subdeltoid space. There is severe AC joint osteoarthrosis. The inferior g lenohumeral labral ligamentous complex appears intact. No muscular atrophy is evident. A small amou nt of synovitis is present within the subcorachoid recess appears slightly more pronounced than on th e prior exam. IMPRESSION: 1. Worsening bursal surface tear of the mid supraspinatus at the footprint now involving 50% of the tendon thickness. 2. Stable superior labrum anterior to posterior tear with degenerative signal abnormality involving the superior glenoid labrum. There is postsurgical change consistent with prior superior labrum anter ior to posterior repair. There is some tear extension into the biceps anchor that appears stable. 3. Worsening subacromial subdeltoid bursal fluid distention suspicious for bursitis. 4. Stable moderate acromioclavicular joint osteoarthrosis. 5. Slightly more pronounced synovitis seen within the subcorachoid recess of the glenohumeral joint. POS: [facility]
== END 2018-05-24 09:54 | disposition home or self-care (01) ==
LOC: TBSIIMAG 09:53
PROVIDERS: ATTEND Family Medicine
DX: M25.511 Pain in right shoulder (principal); S43.401A Unspecified sprain of right shoulder joint, initial encounter; M19.011 Primary osteoarthritis, right shoulder; M65.811 Other synovitis and tenosynovitis, right shoulder

== ENCOUNTER 2018-07-01 14:05 | Outpatient (CLI) | payer MEDICARE ==
--- NOTE | 2018-07-01 15:24 | RAD ---
CERVICAL SPINE SERIES 3 VIEWS: Date: 07/01/18 HISTORY: Follow-up from surgery. COMPARISON: 04/29/18. FINDINGS: Vertebral bodies are normal in height. The patient has undergone anterior cervical fusion with placem ent of plate and screws extending from C4 to C6. Markers of the disc implants are within the confines of the disc level. IMPRESSION: Stable postop change. POS: [facility]
== END 2018-07-01 14:06 | disposition home or self-care (01) ==
LOC: TBSIIMAG 14:05
PROVIDERS: ATTEND Neurological Surgery
DX: M48.02 Spinal stenosis, cervical region (principal); Z98.1 Arthrodesis status
CPT/HCPCS: 72040

== ENCOUNTER 2018-07-15 08:18 | Day surgery (SDC) | payer MEDICARE ==
[2018-07-13 11:30] VITALS: BMI 32.3
[2018-07-15] MEDS ORDERED: Bupivacaine/Epinephrine 0.25% 30 ML VIAL ONE (08:54)
[2018-07-15] MEDS ORDERED: Fentanyl 100 MCG/2 ML VIAL ONE ×2 (09:05→10:16)
[2018-07-15] MEDS ORDERED: Clindamycin/D5W 600 mg/50 ml Premix Bag ONE (09:21)
[2018-07-15 09:25] LABS: Hemoglobin 12.7 g/dL (14.0-18.0); Mean Corpuscular HGB CONC 32.8 g/dL (32.0-36.0); Mean Corpuscular Hemoglobin 29.1 pg (27.0-31.0); Mean Corpuscular Volume 88.7 fL (78.0-98.0); Mean Platelet Volume 7.5 fL (7.4-10.4); Platelet Count 253 thou/uL (130-400); RBC Distribution Width 14.9 % (11.5-14.5); Red Blood Cell (RBC) Count 4.37 mill/uL (4.70-6.10); White Blood Cell (WBC) Count 9.4 thou/uL (4.8-10.8)
[2018-07-15] MEDS ORDERED: Ketorolac Tromethamine 30 MG/ML VIAL ONE (10:04)
[2018-07-15] MEDS ORDERED: PROPOFOL 200 MG/20 ML VIAL ONE (10:04)
[2018-07-15] MEDS ORDERED: Ondansetron PF 4 MG/2 ML Vial ONE (10:04)
[2018-07-15] MEDS ORDERED: Glycopyrrolate 0.2 MG/ML 5 ML SYRINGE ONE (10:04)
[2018-07-15] MEDS ORDERED: PHENYLEPHRINE-NS 100 MCG/ML 10 ML SYRINGE ONE (10:04)
[2018-07-15] MEDS ORDERED: Midazolam HCl 2 mg/2 ml Vial ONE (10:16)
[2018-07-15] MEDS ORDERED: Bupivacaine HCl 0.5%/Epinephrine 1:200,000/PF 30 ml Vial ONE (19:11)
--- NOTE | 2018-07-16 00:37 | OP ---
DATE OF PROCEDURE: 07/15/2018 PREOPERATIVE DIAGNOSES: 1. Right high-grade near full thickness tear rotator cuff. 2. Biceps tendinopathy. 3. Impingement. PROCEDURES PERFORMED: 1. Right rotator cuff repair. 2. Biceps tenodesis. 3. Subacromial decompression. ADMINISTRATION INTERN: Tyler Camacho PA-C. ANESTHESIOLOGIST: Rohan. The patient received a single shot intrascalene. ESTIMATED BLOOD LOSS: 30 mL. TOURNIQUET TIME: None. ANTIBIOTICS: Clindamycin 600. IMPLANTS: A 5.5 x 16 mm metal 3-strand corkscrew, 4.75 BioComposite SwiveLock and then 8 x 19.5 Suture [place] SwiveLock Bio-Tenodesis Screw Arthrex. COMPLICATIONS: None. HISTORY OF PRESENT ILLNESS: Mr. Wheeler is a 57-year-old male with history of effusion and history of chronic back pain and chronic pains treated recently by Dr. Grant. The patient had right shoulder pain with no evidence of a partial-thickness supraspinatus tear. I discussed the risks and benefits of a right arthroscopic rotator cuff repair to include pain, scar, bleeding, infection, decreased range of motion or strength, damage to vital structures, nerves, arteries, tendons, loss of life or limb. The patient understood that he could have a potential Angel deformity. He understand the failure of repair if not following instruction. I discussed the patient preoperatively that he was under chronic pain medications by somebody else, so I would give him hydrocodone 60 tablets and soma for pain relief. I would not treat his chronic pain and he has been seen by chronic pain institution and is currently being treated with oxycodone by somebody else. He understood this. The patient elected to proceed. Time-out was performed designated the patient's right upper extremity as the operative site, based on site, consent, and markings. DESCRIPTION OF PROCEDURE: After time-out was performed, patient's right posterior working portal and anterior working portal were placed, visualized intra- articularly in the joint. Glenoid and humerus did not have any full-thickness tearing, but there was mainly full thickness cartilage defect. There was flattening and damage of the biceps. I did not feel it looked atrophic and damaged, therefore I cut it at its stump. I did see a tear in the capsule, which looked like it continues out intra-articularly, so therefore I washed, removed some acromion there, I took on all the bursa that the the patient had some difficulty with bleeding, which I controlled with cautery. I took down the patient's CA ligament. I debrided and burred down the patient's acromion to help with visualizations as well as the small hook. I took less than 2 mm of bone. I then fixed those in the rotator cuff. I created a bleeding bed for placement and placed a [address] and placed 3 horizontal mattress sutures. I then passed in side that was in placeto place a second lateral row laterally to help compress this cuff down to the bone. I cut the sutures. I then moved to biceps, found the bicipital groove, cleaned it out, found the biceps in position and grasped it in position and then moved to place my tenodesis screw. I first drilled an 8, went to a 9 mm screw hole. This was an 8 mm Bio-Tenodesis screw, which I screwed into position. The patient had poor bone quality. It was fairly thick, so I am concerned about it potentially rupturing his biceps tenodesis. We then washed, removed the sutures, closed with 3-0 nylon at a finger's breadth. The patient will be placed on elbow, wrist and hand motion. No elbow flexion against weight. The patient will follow up with me in 2 weeks. Job ID: [id number] MTDD
== END 2018-07-15 13:55 | disposition home or self-care (01) ==
LOC: SDC 08:18
PROVIDERS: ATTEND Orthopaedic Surgery
PROC: 0LQ14ZZ Repair Right Shoulder Tendon, Percutaneous Endoscopic Approach (ICD-10-PCS; principal; 2018-07-15)
PROC: 0RHJ44Z Insertion of Internal Fixation Device into Right Shoulder Joint, Percutaneous Endoscopic Approach (ICD-10-PCS; 2018-07-15)
PROC: 0LS14ZZ Reposition Right Shoulder Tendon, Percutaneous Endoscopic Approach (ICD-10-PCS; 2018-07-15)
PROC: 0RNJ4ZZ Release Right Shoulder Joint, Percutaneous Endoscopic Approach (ICD-10-PCS; 2018-07-15)
DX: M75.121 Complete rotator cuff tear or rupture of right shoulder, not specified as traumatic (principal); M25.811 Other specified joint disorders, right shoulder; M75.21 Bicipital tendinitis, right shoulder; M70.21 Olecranon bursitis, right elbow; I10 Essential (primary) hypertension; Z79.899 Other long term (current) drug therapy; Z98.1 Arthrodesis status
CPT/HCPCS: 29826; 29827; 29828; 85027; C1713 ×3; J0670; J2250; J3010; J3490

== ENCOUNTER 2018-11-23 10:26 | Outpatient (CLI) | payer MEDICARE ==
--- NOTE | 2018-11-23 11:42 | RAD ---
CERVICAL SPINE 3 VIEWS: Date: 11/23/18 COMPARISON: 07/01/18. FINDINGS: Anterior fusion procedure again noted. Anterior plate and screws in place at C4, C5, and C6 with inte rbody implants. Hardware appears unchanged in position. Posterior alignment is maintained and unchang ed. IMPRESSION: Stable findings when compared to prior study. POS: [facility]
--- NOTE | 2018-11-23 11:53 | MRI ---
MRI CERVICAL SPINE WITHOUT IV CONTRAST: Technique: Multiplanar, multisequential imaging of the cervical spine obtained. Indications: Neck pain. Bilateral arm pain. Cervical region disc herniation. Comparison: MRI cervical spine 03-18-18. FINDINGS: Post-operative changes are now present when compared to the prior study. There has been prior fusion procedure with anterior plate and screws transfixing C4, C5, and C6. This produces artifact from the metallic appliance. C2-3: No significant abnormality. C3-4: There is now a posterior disc bulge and spondolytic change which is more pronounced to the righ t. This abuts and mildly compresses the anterior cord on the right and extends into the right foramin a resulting in foraminal stenosis. C4-5: Fusion changes. Mild effacement of the anterior subarachnoid space. Evidence of foraminal narro wing due to facet and uncinate hypertrophy. C5-6: Fusion changes. Spondylosis effaces the anterior subarachnoid space and abuts the cord. Mild fo raminal narrowing due to hypertrophic change. C6-7: Disc bulge and spondylosis abuts the anterior cord. Mild foraminal encroachment bilaterally fro m facet and uncinate hypertrophy. C7-T1: Mild disc bulge and spondylosis abutt the anterior cord. Slight anterolisthesis at C7-T1. Cord signal appears normally maintained. Congenitally small spinal canal is seen as described previously. IMPRESSION: 1. Post-operative changes are now noted at C4, C5, and C6 levels as described. 2. Disc bulge and spondolytic change centrally and to the right at C3-4 impinge on the anterior cord on the right and extend into the right foramina. POS: [facility]
== END 2018-11-23 10:27 | disposition home or self-care (01) ==
LOC: TBSIIMAG 10:26
PROVIDERS: ATTEND Neurological Surgery
DX: M50.30 Other cervical disc degeneration, unspecified cervical region (principal); M48.02 Spinal stenosis, cervical region; M47.812 Spondylosis without myelopathy or radiculopathy, cervical region; Z98.890 Other specified postprocedural states
CPT/HCPCS: 72040; 72141

== ENCOUNTER 2020-01-28 10:49 | Emergency (ER) | payer MEDICARE, OTHER ==
[2020-01-28] MEDS ORDERED: Acetaminophen 500 MG TAB ONE (11:24)
[2020-01-28 11:57] LABS: #Lymphocytes 1.2 thou/uL (1.20-3.40); #Monocytes 0.8 thou/uL (0.11-0.59); #Neutrophils 3.8 thou/uL (1.40-6.50); %Basophils 0.2 % (0.0-1.0); %Eosinophils 0.1 % (0.0-10.0); %Lymphocytes 20.9 % (21.0-51.0); %Monocytes 13.2 % (0.0-10.0); %Neutrophils 65.6 % (42.0-75.0); Mean Corpuscular HGB CONC 34.2 g/dL (32.0-36.0); Mean Corpuscular Hemoglobin 29.2 pg (27.0-31.0); Mean Corpuscular Volume 85.3 fL (78.0-98.0); Mean Platelet Volume 8.7 fL (7.4-10.4); Platelet Count 192 thou/uL (130-400); RBC Distribution Width 11.2 % (11.5-14.5); Red Blood Cell (RBC) Count 5.16 mill/uL (4.70-6.10); White Blood Cell (WBC) Count 5.8 thou/uL (4.8-10.8)
--- NOTE | 2020-01-28 11:59 | RAD ---
PORTABLE CHEST: HISTORY: Fever. Cough. COMPARISON: Comparison is made to a film of 04/22/2018. There are hazy bibasilar infiltrates. Heart size within normal range. Vasculature normal. Calcifie d granuloma in the right lung again noted. IMPRESSION: There is evidence of hazy [id number] bibasilar infiltrates. POS: [facility]
[2020-01-28 12:18] LABS: ALT (SGPT) 21 U/L (8-55); AST (SGOT) 41 U/L (5-34); Albumin 4.1 g/dL (3.5-5.0); Alkaline Phosphatase 50 U/L (40-110); Anion Gap 17 mmol/L (10-20); BUN (Urea Nitrogen) 14 mg/dL (8.4-25.7); Bilirubin, Total 0.6 mg/dL (0.2-1.2); Calc. Creatinine Clearance 0 mL/min (70-130); Calcium 9.1 mg/dL (7.8-10.44); Carbon Dioxide 21 mmol/L (22-29); Chloride 98 mmol/L (98-107); Estimated GFR-MDRD 82; Globulin 3.6 g/dL (2.4-3.5); Glucose 90 mg/dL (70-105); Potassium 3.1 mmol/L (3.5-5.1); Protein, Total 7.7 g/dL (6.0-8.3); Sodium 133 mmol/L (136-145)
[2020-01-28] MEDS ORDERED: Acetaminophen 500 MG TAB PO SCH (13:00)
[2020-01-28] MEDS ORDERED: Doxycycline 100 MG CAP PO SCH (13:00)
--- NOTE | 2020-01-29 10:34 | EKG ---
Test Reason : Blood Pressure : / mmHG Vent. Rate : 093 BPM Atrial Rate : 093 BPM P-R Int : 118 ms QRS Dur : 094 ms QT Int : 346 ms P-R-T Axes : 045 018 031 degrees QTc Int : 430 ms Normal sinus rhythm Possible Left atrial enlargement Borderline ECG Confirmed by RUDDY MCCARTNEY DO ([id number]), news copy editor MILA BARRERA ([id number]) on 01/29/2020 10:34:32 AM Referred By: Confirmed By:RUDDY MCCARTNEY DO
== END 2020-01-28 13:50 | disposition home or self-care (01) ==
LOC: ERS 10:49
DX: J18.9 Pneumonia, unspecified organism (principal); Z20.828 Contact with and (suspected) exposure to other viral communicable diseases; I10 Essential (primary) hypertension; M10.9 Gout, unspecified; F31.9 Bipolar disorder, unspecified; F20.9 Schizophrenia, unspecified; Z87.891 Personal history of nicotine dependence; Z79.899 Other long term (current) drug therapy
CPT/HCPCS: 36415; 71045; 80053; 83605; 84484; 85025; 93005

== ENCOUNTER 2021-01-25 11:33 | Outpatient (CLI) | payer MEDICARE | END 2021-01-25 11:34 | disposition home or self-care (01) | LOC: TBSIIMAG 11:33 | PROVIDERS: ATTEND Neurological Surgery | DX: M47.12 Other spondylosis with myelopathy, cervical region (principal); M47.16 Other spondylosis with myelopathy, lumbar region; R26.89 Other abnormalities of gait and mobility; R29.6 Repeated falls; M48.02 Spinal stenosis, cervical region; M50.10 Cervical disc disorder with radiculopathy, unspecified cervical region; R90.89 Other abnormal findings on diagnostic imaging of central nervous system; Z98.1 Arthrodesis status | CPT/HCPCS: 70551; 72040; 72141; 72146; 72148 ==

== ENCOUNTER 2024-05-26 12:28 | Outpatient (CLI) | payer OTHER ==
[2024-05-26 14:01] LABS: #Basophils Less than 0.03 10x3/uL (0.0-0.2); #Eosinophils Less than 0.03 10x3/uL (0.0-0.7); %Basophils 0.2 % (0.0-1.0); %Eosinophils 0.2 % (0.0-10.0); %Lymphocytes 37.4 % (21.0-51.0); %Monocytes 11.1 % (0.0-10.0); %Neutrophils 50.7 % (42.0-75.0); Hematocrit 48.3 % (42.0-52.0); Hemoglobin 15.8 g/dL (14.0-18.0); Mean Corpuscular HGB CONC 32.7 g/dL (32.0-36.0); Mean Corpuscular Hemoglobin 29.4 pg (27.0-31.0); Mean Corpuscular Volume 89.9 fL (78.0-98.0); Mean Platelet Volume 10.2 fL (7.4-10.4); Platelet Count 214 10x3/uL (130-400); RBC Distribution Width 13.2 % (11.5-14.5); Red Blood Cell (RBC) Count 5.37 mill/uL (4.70-6.10)
[2024-05-26 14:24] LABS: Anion Gap 13 mmol/L (10-20); BUN (Urea Nitrogen) 11 mg/dL (8.4-25.7); Calc. Creatinine Clearance 0 mL/min (70-130); Calcium 9.3 mg/dL (7.8-10.44); Carbon Dioxide 26 mmol/L (23-31); Chloride 105 mmol/L (98-107); Estimated GFR 78; Glucose 65 mg/dL (80-115); Potassium 3.5 mmol/L (3.5-5.1); Sodium 140 mmol/L (136-145)
== END 2024-05-26 12:29 | disposition home or self-care (01) ==
LOC: LABBT 12:28
PROVIDERS: ATTEND Neurological Surgery
DX: Z01.818 Encounter for other preprocedural examination (principal); M47.12 Other spondylosis with myelopathy, cervical region
CPT/HCPCS: 80048; 85025; 93005; 93010

== ENCOUNTER 2024-06-13 06:04 | Inpatient (IN) | payer OTHER ==
[2024-06-10 10:03] VITALS: BMI 32.3
[2024-06-13] MEDS ORDERED: Vancomycin 1 GM VIAL ONE (06:25)
[2024-06-13] MEDS ORDERED: fentaNYL PF 100 MCG/2 ML SYRINGE ONE (06:36)
[2024-06-13] MEDS ORDERED: Midazolam HCl 2 mg/2 ml Vial ONE (06:36)
[2024-06-13] MEDS ORDERED: Rocuronium Bromide 10 MG/ML (10ML VIAL) ONE (06:36)
[2024-06-13] MEDS ORDERED: PROPOFOL 20 ML ONE (06:36)
[2024-06-13] MEDS ORDERED: LevoFLOXacin D5W 500 mg (100 mL) BAG ONE (06:37)
[2024-06-13] MEDS ORDERED: Clindamycin/D5W 900 mg/50 ml Premix Bag ONE (06:37)
[2024-06-13] MEDS ORDERED: diphenhydrAMINE 50 MG/ML VIAL IVP PRN (06:52)
[2024-06-13] MEDS ORDERED: Ondansetron PF 4 MG/2 ML Vial IVP PRN (06:52)
[2024-06-13] MEDS ORDERED: Milk Of Magnesia 30 ML UDCUP PO PRN (06:52)
[2024-06-13] MEDS ORDERED: Baclofen 10 MG TAB PO PRN (06:55)
[2024-06-13] MEDS ORDERED: HYDROcodone/Acetaminophen 10/325 mg Tablet PO PRN (06:57)
[2024-06-13] MEDS ORDERED: OxyCODONE IR 30 MG TAB PO PRN (06:58)
[2024-06-13] MEDS ORDERED: PHENYLEPHRINE-NS 100 MCG/ML 10 ML SYRINGE ONE (07:38)
[2024-06-13] MEDS ORDERED: Lidocaine 1% PF 5 ML VIAL ONE (07:38)
[2024-06-13] MEDS ORDERED: Ketamine In 0.9 % NaCl 50 MG/5 ML SYRINGE ONE (08:05)
[2024-06-13] MEDS ORDERED: fentaNYL 50 mcg/mL 1 mL Vial ONE (08:08)
[2024-06-13] MEDS ORDERED: Bacitracin Zinc Ointment 30 gm TUBE ONE (08:09)
[2024-06-13] MEDS ORDERED: SUGAMMADEX SODIUM 200 MG/2 ML VIAL ONE (09:42)
[2024-06-13] MEDS ORDERED: Dexamethasone 20 MG/5 ML VIAL ONE (09:42)
[2024-06-13] MEDS ORDERED: Ondansetron PF 4 MG/2 ML Vial ONE (09:42)
[2024-06-13] MEDS ORDERED: Fentanyl 250 MCG/5 ML VIAL ONE (10:08)
[2024-06-13] MEDS ORDERED: HYDROmorphone 2 MG/ML VIAL ONE (10:09)
[2024-06-13] MEDS ORDERED: Ketorolac Tromethamine 30 MG (1 mL) VIAL ONE (10:18)
[2024-06-13] MEDS ORDERED: Promethazine HCl 25 MG/ML VIAL ONE ×2 (10:27→10:39)
[2024-06-13] MEDS ORDERED: Non-Formulary Medication 1 EACH PO PRN (11:56)
[2024-06-13] MEDS ORDERED: HYDROmorphone 2 MG/ML VIAL SLOW IVP PRN (12:00)
[2024-06-13] MEDS ORDERED: Promethazine HCl 25 MG/ML VIAL IM PRN (12:00)
[2024-06-13] MEDS ORDERED: Ondansetron HCl/PF 4 MG/2 ML Vial IVP PRN (12:00)
[2024-06-13] MEDS ORDERED: Ketorolac Tromethamine 30 MG/ML VIAL IVP PRN (12:00)
[2024-06-13] MEDS: Sodium Chloride 0.9% 1,000 ML IV SCH (12:16)
[2024-06-13] MEDS: Morphine 2 MG/ML VIAL SLOW IVP PRN (12:43)
[2024-06-13] MEDS ORDERED: Clindamycin/D5W 900 MG in Premix 1 BAG IVPB SCH (14:00)
[2024-06-13] MEDS: Clindamycin/D5W 900 MG in Premix 1 BAG IVPB SCH (14:20)
[2024-06-13] MEDS: oxyCODONE 5 MG TAB PO PRN (14:32)
[2024-06-13] MEDS: Potassium Chloride 20 MEQ TAB PO SCH (14:39)
[2024-06-13] MEDS: prednisoLONE 10 MG ODT TAB PO SCH (14:39)
[2024-06-13] MEDS: Furosemide 40 MG TAB PO SCH (14:39)
[2024-06-13] MEDS: FLU (Fluarix Triv) TS24-25(6MOS UP)/PF 45 MCG/0.5 ML Syringe IM ONE (14:39)
[2024-06-13] MEDS: HYDROcodone/Acetaminophen 10/325 mg Tablet PO PRN (17:16)
[2024-06-13] MEDS: Baclofen 10 MG TAB PO SCH (17:17)
[2024-06-13] MEDS: Acetaminophen 500 MG TAB PO SCH (17:22)
[2024-06-13] MEDS: Diazepam 5 MG TAB PO PRN (21:50)
[2024-06-14] MEDS ORDERED: prednisoLONE 10 MG ODT TAB PO SCH (08:00)
[2024-06-14] MEDS ORDERED: Furosemide 40 MG TAB PO SCH (09:00)
[2024-06-14] MEDS ORDERED: Potassium Chloride 20 MEQ TAB PO SCH (09:00)
[2024-06-14] MEDS: fentaNYL 50 mcg/hour Patch TD SCH (10:06)
[2024-06-14] MEDS: Colchicine 0.6 MG TAB PO SCH (10:08)
[2024-06-14 10:12] LABS: Anion Gap 13 mmol/L (10-20); BUN (Urea Nitrogen) 9 mg/dL (8.4-25.7); Calc. Creatinine Clearance 100 mL/min (70-130); Calcium 8.8 mg/dL (7.8-10.44); Carbon Dioxide 20 mmol/L (23-31); Chloride 106 mmol/L (98-107); Estimated GFR 75; Glucose 165 mg/dL (80-115); Potassium 4.2 mmol/L (3.5-5.1); Sodium 135 mmol/L (136-145)
[2024-06-14] MEDS ORDERED: Polyethylene Glycol 3350 17 GM Packet PO PRN (11:02)
[2024-06-14] MEDS: Senokot S 8.6-50 MG TAB PO SCH (22:13)
[2024-06-15] MEDS ORDERED: OxyCODONE IR 30 MG TAB PO PRN (08:22)
[2024-06-15] MEDS ORDERED: Fentanyl 100 MCG/2 ML VIAL SLOW IVP PRN (08:23)
[2024-06-15 15:25] LABS: Anion Gap 11 mmol/L (10-20); BUN (Urea Nitrogen) 10 mg/dL (8.4-25.7); Calc. Creatinine Clearance 98 mL/min (70-130); Calcium 9.2 mg/dL (7.8-10.44); Carbon Dioxide 29 mmol/L (23-31); Chloride 100 mmol/L (98-107); Estimated GFR 73; Glucose 96 mg/dL (80-115); Potassium 3.7 mmol/L (3.5-5.1); Sodium 136 mmol/L (136-145)
[2024-06-15] MEDS: oxyCODONE 5 MG TAB PO PRN (21:59)
[2024-06-16 10:23] VITALS: BP 97/62; TEMP 97.2
== END 2024-06-16 14:54 | disposition home or self-care (01) | DRG 430 ==
LOC: SURG A 06:04 → SURG B 11:53
PROVIDERS: ADMIT Neurological Surgery; ATTEND Neurological Surgery
PROC: 0RG10A0 Fusion of Cervical Vertebral Joint with Interbody Fusion Device, Anterior Approach, Anterior Column, Open Approach (ICD-10-PCS; principal; 2024-06-13)
PROC: 0RG1071 Fusion of Cervical Vertebral Joint with Autologous Tissue Substitute, Posterior Approach, Posterior Column, Open Approach (ICD-10-PCS; 2024-06-13)
PROC: 0RT30ZZ Resection of Cervical Vertebral Disc, Open Approach (ICD-10-PCS; 2024-06-13)
PROC: 00NW0ZZ Release Cervical Spinal Cord, Open Approach (ICD-10-PCS; 2024-06-13)
DX: M48.02 Spinal stenosis, cervical region (principal); J96.11 Chronic respiratory failure with hypoxia; E87.1 Hypo-osmolality and hyponatremia; J44.9 Chronic obstructive pulmonary disease, unspecified; M10.9 Gout, unspecified; G89.4 Chronic pain syndrome; J84.10 Pulmonary fibrosis, unspecified; E66.9 Obesity, unspecified; Z68.32 Body mass index [BMI] 32.0-32.9, adult; Z88.8 Allergy status to other drugs, medicaments and biological substances; Z99.81 Dependence on supplemental oxygen; N18.2 Chronic kidney disease, stage 2 (mild); I12.9 Hypertensive chronic kidney disease with stage 1 through stage 4 chronic kidney disease, or unspecified chronic kidney disease
CPT/HCPCS: 36415; 80048; 83735; C1713; J1100; J1885; J1956; J2250; J2272; J2405; J2550; J2704; J3010; J3370; J3490; J7030